=== PATIENT | male | born 1955 | race Caucasian/White ===

== ENCOUNTER 2022-04-25 16:53 | Inpatient (IN) | payer MEDICARE ==
[~2022-04-25] VITALS: Ht 170.2 cm; Wt 72.6 kg
[2022-04-25 17:31] LABS: MEAN CORPUSCULAR HEMOGLOBIN 27.3 uug (23.8-33.4); MEAN CORPUSCULAR VOLUME 82.2 fL (73.0-96.2); PLATELET COUNT (AUTO) 117 K/uL (152-348)
[2022-04-25 17:38] LABS: BILIRUBIN,DIRECT 0.1 mg/dL (0.0-0.2); BILIRUBIN,TOTAL 0.3 mg/dL (0.2-1.0); CREATININE 0.8 mg/dL (0.6-1.3); POTASSIUM 4.1 mmol/L (3.5-5.1); TOTAL PROTEIN, SERUM 6.9 g/dL (6.4-8.2)
--- NOTE | 2022-04-25 18:03 | NUR ---
Gave pt dinner tray.
--- NOTE | 2022-04-25 19:21 | NUR ---
First contact. Received report at this time. Pt lying in bed supine. Resp even and unlabored. No acute distress noted. Currently on monitor.
[2022-04-25] MEDS ORDERED: LINA5TAB PO (21:31)
[2022-04-25] MEDS ORDERED: MAGN400O6 PO (21:31)
[2022-04-25] MEDS ORDERED: METF-440 PO (21:31)
[2022-04-25] MEDS ORDERED: CALC-494 PO (21:31)
[2022-04-25] MEDS ORDERED: MELA3TAB41 PO (21:31)
[2022-04-25] MEDS ORDERED: [UNRECOGNIZED DRUG - OTHER] SUBCUT (21:31)
[2022-04-25] MEDS ORDERED: LIDO30AD10 TD (21:31)
[2022-04-25] MEDS ORDERED: LOSA50TA3 PO (21:31)
[2022-04-25] MEDS ORDERED: NA P133E RC (21:31)
[2022-04-25] MEDS ORDERED: MULT-416 PO (21:31)
[2022-04-25] MEDS ORDERED: HYDR-3972 PO (21:31)
[2022-04-25] MEDS ORDERED: OMEP20TA5 PO (21:31)
[2022-04-25] MEDS ORDERED: MIRT-93 PO (21:31)
[2022-04-25 21:45] VITALS: BP 132/84
--- NOTE | 2022-04-25 21:45 | NUR ---
Transfered to 3rd floor Tele.
--- NOTE | 2022-04-25 22:00 | NUR ---
Admitted to tele floor under the care of the DR Harris, patient alert oriented, no sob no chest pain, sinus rhythm in tele reading, patient had back healed incision scar, and scar on his back of his head. Patient stated he can ambulate with FWW, uses urinal for bladder eliminations. Patient seen by Dr Harris with orders. cont to monitor.
[2022-04-25] MEDS ORDERED: DEXTROSE 50% 50 ML DISP.SYRIN IV PRN (22:45)
[2022-04-25] MEDS ORDERED: FLEET ENEMA 133 ML BOTTLE RC PRN (22:45)
[2022-04-25] MEDS ORDERED: MAGNESIUM HYDROXIDE 30 ML LIQUID UDC PO PRN (22:45)
[2022-04-26] VITALS: BP 138/85
[2022-04-26 01:28] LABS: *BILIRUBIN,URIN NEGATIVE (NEGATIVE); *CLARITY,URINE CLOUDY (CLEAR); *COLOR,URINE YELLOW (YELLOW); *KETONES,URINE NEGATIVE (NEGATIVE); *UROBILINOGEN,URINE 0.2 E.U./dl (NORMAL); LEUKOCYTE ESTERASE ,URINE 1+ (NEGATIVE); NITRITE, URINE POSITIVE (NEGATIVE); PH,URINE 5.5 (5.0-8.0); UGLUCOSE 3+ (NEGATIVE)
[2022-04-26 01:34] LABS: *BLOOD, URINE TRACE LYSED (NEGATIVE)
[2022-04-26 04:00] VITALS: BP 114/68
--- NOTE | 2022-04-26 04:29 | NUR ---
Patient awake, sleep intermittently, no sob no chest pain, sinus rhythm on the tele, no complain of pain, cont to monitor.
[2022-04-26] MEDS: BLOOD SUGAR DIAGNOSTIC 1 EACH STRIP VI SCH ×4 (05:34→21:36)
[2022-04-26] MEDS: PANTOPRAZOLE SODIUM 40 MG TABLET.DR PO SCH (06:09)
[2022-04-26 07:05] LABS: RBC,URINE 0-3 /HPF (0-3)
[2022-04-26 07:06] LABS: BACTERIA,URINE MANY /HPF (NONE SEEN); SQUAMOUS EPITHELIAL CELL,UR FEW /HPF (NONE SEEN); WBC,URINE TNTC /HPF (0-3)
[2022-04-26] MEDS: METFORMIN HCL 500 MG TABLET PO SCH ×2 (08:24→17:03)
[2022-04-26] MEDS: LOSARTAN POTASSIUM 50 MG TABLET PO SCH (08:24)
[2022-04-26] MEDS: INSULIN REGULAR, HUMAN 300 UNIT/3 ML VIAL SQ PRN ×4 (08:26→21:36)
[2022-04-26] MEDS ORDERED: LIDOCAINE 5% PATCH TD SCH (09:00)
[2022-04-26] MEDS ORDERED: LINAGLIPTIN 5 MG TABLET PO SCH (09:00)
[2022-04-26] MEDS: LIDOCAINE 5% PATCH TD SCH (09:58)
[2022-04-26 11:58] VITALS: BP 109/65
[2022-04-26] MEDS: HYDROCODONE/APAP 5-325MG TABLET PO PRN ×2 (13:48→19:57)
[2022-04-26] MEDS ORDERED: ACET325T53 PO (15:30)
[2022-04-26] MEDS ORDERED: BISA10SU61 RC (15:30)
[2022-04-26] MEDS ORDERED: INSU100I14 SQ (15:30)
[2022-04-26 16:32] VITALS: BP 110/66
--- NOTE | 2022-04-26 19:03 | NUR ---
Patient tolerated care well throughout shift. No complaints of pain or distress. Will endorse information to PM nurse.
--- NOTE | 2022-04-26 19:30 | NUR ---
Received patient lying in bed. AAOX4. In no acute distress. Denies any SOB. Complain of lower back pain. Will provide pain medication per order. NSR on tele with HR of 79/min. IV site on right hand intact and patent. Safety measure initiated and call light within reached.
[2022-04-26 20:00] VITALS: BP 131/71
[2022-04-26] MEDS: MELATONIN 3 MG TABLET PO SCH (21:33)
[2022-04-26] MEDS: MIRTAZAPINE 15 MG TABLET PO SCH (21:33)
[2022-04-26] MEDS: INSULIN GLARGINE,HUM 300 UNITS/3 ML CARTRIDGE SQ SCH (21:38)
[2022-04-27] VITALS: BP 121/71
[2022-04-27 04:00] VITALS: BP 120/73
[2022-04-27] MEDS: PANTOPRAZOLE SODIUM 40 MG TABLET.DR PO SCH (06:05)
--- NOTE | 2022-04-27 06:14 | NUR ---
Slept well during the night. No further complain of pain. NSR on tele with HR of 63/min. Safety measure maintained and call light within reached.
[2022-04-27] MEDS: BLOOD SUGAR DIAGNOSTIC 1 EACH STRIP VI SCH ×4 (06:43→20:09)
[2022-04-27] MEDS: LINAGLIPTIN 5 MG TABLET PO SCH (08:14)
[2022-04-27] MEDS: METFORMIN HCL 500 MG TABLET PO SCH ×2 (08:14→17:04)
[2022-04-27] MEDS: LIDOCAINE 5% PATCH TD SCH (08:15)
[2022-04-27] MEDS: LOSARTAN POTASSIUM 50 MG TABLET PO SCH (08:15)
[2022-04-27] MEDS: INSULIN REGULAR, HUMAN 300 UNIT/3 ML VIAL SQ PRN ×4 (08:17→20:16)
[2022-04-27] MEDS: HYDROCODONE/APAP 5-325MG TABLET PO PRN ×3 (09:14→21:19)
[2022-04-27 11:53] VITALS: BP 122/79
[2022-04-27 16:00] VITALS: BP 102/64
--- NOTE | 2022-04-27 17:29 | NUR ---
Patient tolerated care well throughout shift. Pain managed through medicinal interventions. IV site patent and intact. Bed left in lowest position with call light within reach. Report endorsed to charge nurse, Jamal NEVES.
[2022-04-27] MEDS: INSULIN GLARGINE,HUM 300 UNITS/3 ML CARTRIDGE SQ SCH (20:11)
[2022-04-27 20:31] VITALS: BP 112/64
[2022-04-27] MEDS: MIRTAZAPINE 15 MG TABLET PO SCH (20:52)
[2022-04-27] MEDS: MELATONIN 3 MG TABLET PO SCH (20:52)
[2022-04-27 22:42] LABS: *BILIRUBIN,URIN NEGATIVE (NEGATIVE); *CLARITY,URINE CLOUDY (CLEAR); *COLOR,URINE YELLOW (YELLOW); *KETONES,URINE NEGATIVE (NEGATIVE); *UROBILINOGEN,URINE 0.2 E.U./dl (NORMAL); LEUKOCYTE ESTERASE ,URINE 1+ (NEGATIVE); NITRITE, URINE NEGATIVE (NEGATIVE); PH,URINE 5.5 (5.0-8.0); UGLUCOSE 2+ (NEGATIVE)
[2022-04-27 22:43] LABS: *BLOOD, URINE TRACE INTACT (NEGATIVE)
[2022-04-27 22:57] LABS: HEMATOCRIT 35.7 % (36.7-47.1); MEAN CORPUSCULAR HEMOGLOBIN 26.6 uug (23.8-33.4); MEAN CORPUSCULAR VOLUME 81.8 fL (73.0-96.2); PLATELET COUNT (AUTO) 90 K/uL (152-348)
[2022-04-27 23:00] LABS: BILIRUBIN,TOTAL 0.3 mg/dL (0.2-1.0); CREATININE 0.9 mg/dL (0.6-1.3); POTASSIUM 4.2 mmol/L (3.5-5.1); TOTAL PROTEIN, SERUM 6.8 g/dL (6.4-8.2)
[2022-04-28 00:43] VITALS: BP 123/71
[2022-04-28 04:52] VITALS: BP 108/61
[2022-04-28] MEDS: PANTOPRAZOLE SODIUM 40 MG TABLET.DR PO SCH (06:12)
[2022-04-28] MEDS: BLOOD SUGAR DIAGNOSTIC 1 EACH STRIP VI SCH ×4 (06:12→20:07)
--- NOTE | 2022-04-28 06:24 | NUR ---
TEXT DR. AVILES FOR MRI APPROVAL
[2022-04-28] MEDS: INSULIN REGULAR, HUMAN 300 UNIT/3 ML VIAL SQ PRN ×4 (06:33→20:57)
[2022-04-28 07:53] LABS: BACTERIA,URINE MANY /HPF (NONE SEEN); SQUAMOUS EPITHELIAL CELL,UR FEW /HPF (NONE SEEN); WBC,URINE TNTC /HPF (0-3)
[2022-04-28] MEDS: LINAGLIPTIN 5 MG TABLET PO SCH (08:42)
[2022-04-28] MEDS: LIDOCAINE 5% PATCH TD SCH (08:42)
[2022-04-28] MEDS: METFORMIN HCL 500 MG TABLET PO SCH ×2 (08:43→17:07)
[2022-04-28] MEDS: LOSARTAN POTASSIUM 50 MG TABLET PO SCH (08:47)
[2022-04-28 11:45] VITALS: BP 144/92
[2022-04-28] MEDS: HYDROCODONE/APAP 5-325MG TABLET PO PRN ×2 (11:50→19:03)
[2022-04-28 16:00] VITALS: BP 124/83
[2022-04-28 20:06] VITALS: BP 123/76
[2022-04-28] MEDS: MELATONIN 3 MG TABLET PO SCH (20:07)
[2022-04-28] MEDS: MIRTAZAPINE 15 MG TABLET PO SCH (20:07)
[2022-04-28] MEDS: INSULIN GLARGINE,HUM 300 UNITS/3 ML CARTRIDGE SQ SCH (20:54)
[2022-04-29 00:27] VITALS: BP 111/75
[2022-04-29 04:30] VITALS: BP 115/69
[2022-04-29] MEDS: PANTOPRAZOLE SODIUM 40 MG TABLET.DR PO SCH (06:04)
[2022-04-29] MEDS: BLOOD SUGAR DIAGNOSTIC 1 EACH STRIP VI SCH ×4 (06:16→20:28)
[2022-04-29] MEDS: LINAGLIPTIN 5 MG TABLET PO SCH (08:26)
[2022-04-29] MEDS: METFORMIN HCL 500 MG TABLET PO SCH ×2 (08:27→18:09)
[2022-04-29] MEDS: LOSARTAN POTASSIUM 50 MG TABLET PO SCH (08:31)
[2022-04-29] MEDS: LIDOCAINE 5% PATCH TD SCH (08:32)
[2022-04-29] MEDS: HYDROCODONE/APAP 5-325MG TABLET PO PRN ×2 (08:35→15:51)
[2022-04-29] MEDS: INSULIN REGULAR, HUMAN 300 UNIT/3 ML VIAL SQ PRN ×4 (08:38→20:32)
[2022-04-29 11:59] VITALS: BP 104/74
--- NOTE | 2022-04-29 13:54 | NUR ---
Received pt. while sleeping. Alert and oriented X4. no acute distress noted. Complain of lower back pain and scheduled pain patch applied. Medications administered and BS checked and administered insulin per sliding scale. Bed left in low position and call light within reach. Able to make the need known. Pt. went for MRI for Right hand weakness and paresthesia at around 9:00am via gurney and with two transporters and came back at 11:00am. Cardiac monitoring started when the patient came back. compliance with the care given and will keep monitoring the resident
[2022-04-29 16:26] VITALS: BP 131/78
--- NOTE | 2022-04-29 18:27 | NUR ---
Noted per Dr mina notes re: request for neuro consult. No neuro consult notes observed. Courtesy call made to DR Carty per Mariann request. MRI cervical and brain results given to DR Carty. Notified DR Mina of Nacho recommendations to patient - spine surgeon and Akhavan consultation. Dr huizar here notified of consult for pain management. Awaiting further orders.
--- NOTE | 2022-04-29 19:30 | NUR ---
Received patient lying in bed. AAOx4, some forgetfulness. In no acute distress. No complain of pain or SOB at this time. IV site on right hand intact and patent. NSR on tele with HR of 87/min. Needs assessed and attended to. Safety measure initiated and call light within reached.
[2022-04-29] MEDS: MELATONIN 3 MG TABLET PO SCH (20:15)
[2022-04-29] MEDS: CEFTRIAXONE 1 G in IV DEXTROSE 5% 50 ML IV SCH (20:16)
[2022-04-29] MEDS: MIRTAZAPINE 15 MG TABLET PO SCH (20:16)
[2022-04-29 20:28] VITALS: BP 118/71
[2022-04-29] MEDS: INSULIN GLARGINE,HUM 300 UNITS/3 ML CARTRIDGE SQ SCH (20:32)
[2022-04-29] MEDS: PREGABALIN 25 MG CAPSULE PO SCH (22:13)
[2022-04-30 00:14] VITALS: BP 102/61
[2022-04-30 04:10] VITALS: BP 122/76
--- NOTE | 2022-04-30 05:16 | NUR ---
Patient slept well through out the night. No complain of pain or SOB. No side effect noted from IV antibiotic. NSR on tele with Hr of 67/mins. Needs attended to and met. Safety measure maintained and call light within reached.
[2022-04-30] MEDS: PREGABALIN 25 MG CAPSULE PO SCH ×3 (06:06→21:10)
[2022-04-30] MEDS: PANTOPRAZOLE SODIUM 40 MG TABLET.DR PO SCH (06:06)
[2022-04-30] MEDS: BLOOD SUGAR DIAGNOSTIC 1 EACH STRIP VI SCH ×4 (06:35→20:05)
[2022-04-30] MEDS: HYDROCODONE/APAP 5-325MG TABLET PO PRN ×2 (08:20→17:48)
[2022-04-30] MEDS: METFORMIN HCL 500 MG TABLET PO SCH ×2 (08:21→17:44)
[2022-04-30] MEDS: LINAGLIPTIN 5 MG TABLET PO SCH (08:21)
[2022-04-30] MEDS: LOSARTAN POTASSIUM 50 MG TABLET PO SCH (08:24)
[2022-04-30] MEDS: LIDOCAINE 5% PATCH TD SCH (08:24)
[2022-04-30 11:48] VITALS: BP 109/67
[2022-04-30] MEDS: GLUCERNA SHAKE 237 ML CAN PO SCH (12:25)
[2022-04-30] MEDS: INSULIN REGULAR, HUMAN 300 UNIT/3 ML VIAL SQ PRN ×3 (13:16→20:06)
[2022-04-30 16:30] VITALS: BP 109/71
--- NOTE | 2022-04-30 16:50 | NUR ---
pt tolerated physical therapy sessions today with pre medication for pain management. Pt was started on lyrica-pt's pain current level is 2/10.
--- NOTE | 2022-04-30 19:30 | NUR ---
Received patient lying in bed. AAOx4, some forgetfulness. In no apparent distress. IV site on right hand intact and patent. NSR on tele with HR of 78/min. No complain of pain or SOB. Safety measure initiated and call light within reached.
[2022-04-30 20:00] VITALS: BP 115/61
[2022-04-30] MEDS: MELATONIN 3 MG TABLET PO SCH (20:02)
[2022-04-30] MEDS: CEFTRIAXONE 1 G in IV DEXTROSE 5% 50 ML IV SCH (20:02)
[2022-04-30] MEDS: MIRTAZAPINE 15 MG TABLET PO SCH (20:02)
[2022-04-30] MEDS: INSULIN GLARGINE,HUM 300 UNITS/3 ML CARTRIDGE SQ SCH (20:06)
[2022-05-01] VITALS: BP 106/64
[2022-05-01 04:00] VITALS: BP 114/65
[2022-05-01] MEDS: PREGABALIN 25 MG CAPSULE PO SCH ×2 (05:21→14:04)
[2022-05-01] MEDS: PANTOPRAZOLE SODIUM 40 MG TABLET.DR PO SCH (06:06)
--- NOTE | 2022-05-01 06:18 | NUR ---
Slept well during the night. No complain of pain. NSR on tele with HR of 65/min. Safety measure maintained and call light within reached.
[2022-05-01] MEDS: BLOOD SUGAR DIAGNOSTIC 1 EACH STRIP VI SCH ×2 (06:31→11:44)
[2022-05-01] MEDS: INSULIN REGULAR, HUMAN 300 UNIT/3 ML VIAL SQ PRN ×2 (07:37→11:47)
[2022-05-01] MEDS: LINAGLIPTIN 5 MG TABLET PO SCH (08:50)
[2022-05-01] MEDS: HYDROCODONE/APAP 5-325MG TABLET PO PRN (08:50)
[2022-05-01] MEDS: METFORMIN HCL 500 MG TABLET PO SCH (08:50)
[2022-05-01] MEDS: LOSARTAN POTASSIUM 50 MG TABLET PO SCH (08:50)
[2022-05-01] MEDS: LIDOCAINE 5% PATCH TD SCH (08:50)
[2022-05-01] MEDS: GLUCERNA SHAKE 237 ML CAN PO SCH (08:51)
--- NOTE | 2022-05-01 09:20 | NUR ---
PT IS COMPLAINING OF BACK PAIN. GAVE NORCO PRN. WILL REASSESS IN 1 HR.
[2022-05-01 11:59] VITALS: BP 120/85
[2022-05-01] MEDS ORDERED: NITROFURANTOIN/NITROFURAN MAC 100 MG CAPSULE PO SCH (13:30)
--- NOTE | 2022-05-01 13:37 | NUR ---
PT IS DISCHARGE. WILL GO BACK TO [facility].
--- NOTE | 2022-05-01 14:00 | NUR ---
report given to geraldine singh of [facility].
--- NOTE | 2022-05-01 14:55 | NUR ---
pt is discharge. vital sign wnl. all belongings accounted for. pt will go back to [facility]. pt left via ambulance.
== END 2022-05-01 14:55 | DRG 552 ==
LOC: ER 16:53 → TELE3 21:19
PROVIDERS: ADMIT Internal Medicine; ATTEND Internal Medicine
DX: M50.01 Cervical disc disorder with myelopathy, high cervical region (principal); M48.02 Spinal stenosis, cervical region; E11.9 Type 2 diabetes mellitus without complications; M50.11 Cervical disc disorder with radiculopathy, high cervical region; R20.8 Other disturbances of skin sensation; F32.A Depression, unspecified; Z87.820 Personal history of traumatic brain injury; I10 Essential (primary) hypertension; D64.9 Anemia, unspecified; Z79.84 Long term (current) use of oral hypoglycemic drugs; M51.16 Intervertebral disc disorders with radiculopathy, lumbar region; R53.1 Weakness; M25.78 Osteophyte, vertebrae; Z20.822 Contact with and (suspected) exposure to COVID-19
CPT/HCPCS: 36415; 70450; 70551; 71045; 72141; 85025; 87077; 87086; 97161; A4663; G0378; J0696; J1815